=== PATIENT | female | born 1960 | race Caucasian/White ===

== ENCOUNTER → 2021-07-16 | Outpatient (CLI) | payer OTHER ==
[~2021-07-16] MED LIST: ASPI81CH PO; Cipro500 MG PO; DAPS100 PO; Flagyl500 MG PO; Prilosec20 MG PO
== END | disposition home or self-care (01) ==
LOC: LAB SHORT 10:10
DX: R39.198 Other difficulties with micturition (principal)
CPT/HCPCS: 87077; 87086; 87186

== ENCOUNTER → 2023-02-22 | Outpatient (CLI) | payer OTHER | END | disposition home or self-care (01) | LOC: LAB SHORT 11:59 → LAB 11:59 | DX: R25.2 Cramp and spasm (principal) | CPT/HCPCS: 83735 ==

== ENCOUNTER → 2023-07-19 | Outpatient (CLI) | payer SELFPAY ==
[2023-07-22 11:05] LABS: HPV HIGH RISK BY TMA Not Detected; HPV SOURCE Cervical
== END | disposition home or self-care (01) ==
LOC: LAB SHORT 14:47 → LAB 14:47
PROVIDERS: Registered Nurse Community Health
DX: Z12.4 Encounter for screening for malignant neoplasm of cervix (principal)
CPT/HCPCS: 87624; G0123

== ENCOUNTER 2024-10-30 07:23 | Day surgery (SDC) | payer OTHER ==
[~2024-10-30] VITALS: Ht 172.7 cm; Wt 63.8 kg
[2024-10-30] VITALS (13 sets, daily range): BP systolic 115–180; BP diastolic 76–121
[~2024-10-30 07:23] MED LIST changes: +Lactated Ringer's 1,000 ML IV SCH
--- NOTE | 2024-10-30 07:42 | NUR ---
Ambulatory in Day SurgeryPre-Op teaching done. Pt verbalizes understanding. History, Chart, Medications and Allergies reviewed before start of procedure.Patient confirms NPO status and agrees with scheduled surgery. Patient States Post-Procedure ride home has been arranged.
[2024-10-30] MEDS ORDERED: propofoL 40 ML IV ONE (08:11)
[2024-10-30] MEDS ORDERED: Midazolam HCl 1MG / ML 2ML Vial ONE (08:11)
--- NOTE | 2024-10-30 08:14 | NUR ---
10/30/24 0814 Paulina Cooper CONFIRMED AND REVIEWED H&P, MEDCICATIONS, ALLERGIES, MEDICAL HISTORY, RESPIRATORY HISTORY, VITAL SIGNS, 3-LEAD EKG, CONSENTS, AND PHYSICIAN ORDERS. PATIENT CONFIRMS NPO STATUS AND AGREES WITH SCHEDULED PROCEDURE. MONITOR INTACT WITH CONTINUOUS PULSE OXIMETRY, CAPNOGRAPHY, 3-LEAD EKG, INTERMITTENT BP. SUPPLEMENTAL O2 TO BE TITRATED THROUGHOUT PROCEDURE TO MAINTAIN O2 SATURATION ABOVE 90%. PATIENT DETERMINED TO BE ASA APPROPRIATE FOR PROPOFOL SEDATION PRIOR TO START OF PROCEDURE BY DR. GAINES.
--- NOTE | 2024-10-30 09:05 | NUR ---
Discharge instructions reviewed with patient. Patient verbalizes understanding. Copy given to patient to take home. Patient States Post-Procedure ride home has been arranged WITH FRIEND, MANISHA. Discharged via wheelchair to private car for ride home.
== END 2024-10-30 09:06 | disposition home or self-care (01) ==
LOC: ORSCMMR 07:23 → ORD 08:00 → ORSCMMR 09:06
PROVIDERS: Internal Medicine Gastroenterology
PROC: 0DBK8ZX Excision of Ascending Colon, Via Natural or Artificial Opening Endoscopic, Diagnostic (ICD-10-PCS; principal; 2024-10-30 08:00)
DX: Z12.11 Encounter for screening for malignant neoplasm of colon (principal); D12.2 Benign neoplasm of ascending colon; E11.9 Type 2 diabetes mellitus without complications; J44.9 Chronic obstructive pulmonary disease, unspecified; E78.00 Pure hypercholesterolemia, unspecified; I10 Essential (primary) hypertension
CPT/HCPCS: 82947; 88305; J2250; J2704; J7120